=== PATIENT | male | born 1980 | race Caucasian/White ===

== ENCOUNTER 2021-02-16 06:48 | Emergency (ER) | payer OTHER ==
[2021-02-16 08:23] LABS: BASOPHIL 0.8 % (0-2); EOSINOPHIL 3.8 % (0-5); HCT 50.9 % (42.0-52.0); LYMPHOCYTE 22.9 % (15-48); MCH 35.3 pg (25.0-31.0); MCHC 33.4 g/dL (32.0-36.0); MCV 105.6 fL (78.0-100.0); MONOCYTE 8.6 % (0-12); MPV 10.3 fL (6.0-9.5); NEUTROPHIL 63.4 % (41-80); NRBC 0; PLT 199 K/uL (150-400); RBC 4.82 M/uL (4.70-6.00); RDW 12.2 % (11.5-14.0); WBC 9.9 K/uL (4.0-10.5)
[2021-02-16 08:24] LABS: BILIRUBIN NEGATIVE (NEGATIVE); BLOOD NEGATIVE Ery/uL (NEGATIVE); CLARITY CLEAR (CLEAR); COLOR YELLOW (YELLOW); GLUCOSE (U) NORMAL (NORMAL); LEUKOCYTES NEGATIVE Leu/uL (NEGATIVE); NITRITE NEGATIVE (NEGATIVE); PROTEIN NEGATIVE (NEGATIVE); SPECIFIC GRAVITY 1.015 (1.001-1.030); UROBILINOGEN 0.2 mg/dL (0.2-1.0)
[2021-02-16 08:28] LABS: AMPHETAMINES NEGATIVE (NEGATIVE); BARBITURATES NEGATIVE (NEGATIVE); ECSTASY (MDMA) NEGATIVE (NEGATIVE); MARIJUANA (THC) NEGATIVE (NEGATIVE); METHADONE NEGATIVE (NEGATIVE); OPIATES NEGATIVE (NEGATIVE); OXYCODONE NEGATIVE (NEGATIVE)
[2021-02-16 08:50] LABS: ALBUMIN 3.9 g/dL (3.4-5.0); BILIRUBIN - TOTAL 0.3 mg/dL (0.2-1.0); BUN/CREAT RATIO (CALC) 13.3 RATIO; CREATININE 0.83 mg/dL (0.67-1.17); GLOBULIN (CALCULATION) 3.2 g/dL; POTASSIUM 4.1 mmol/L (3.5-5.1); TOTAL PROTEIN 7.1 g/dL (6.4-8.2)
== END 2021-02-16 09:15 | disposition home or self-care (01) ==
LOC: FER 06:48
PROVIDERS: Internal Medicine
DX: E11.9 Type 2 diabetes mellitus without complications (principal); G56.02 Carpal tunnel syndrome, left upper limb; I10 Essential (primary) hypertension; F17.210 Nicotine dependence, cigarettes, uncomplicated
CPT/HCPCS: 36415; 80053; 80305; 81003; 83036; 84443; 85025; 93005